=== PATIENT | male | born 1965 | race Caucasian/White ===

== ENCOUNTER 2020-06-02 10:52 | Day surgery (SDC) | payer OTHER, BC ==
[~2020-06-02] VITALS: Ht 185.4 cm; Wt 114.9 kg
[~2020-06-02 10:52] MED LIST: EZET10 PO; MULTI-VITAMIN1 EAC2 PO; OXYC10TA19 PO; TAMS.4ER PO
== END 2020-06-02 12:49 | disposition home or self-care (01) ==
LOC: ORSCSDS 10:52
PROVIDERS: Internal Medicine Gastroenterology
PROC: 0DBC8ZX Excision of Ileocecal Valve, Via Natural or Artificial Opening Endoscopic, Diagnostic (ICD-10-PCS; principal; 2020-06-02 12:00)
PROC: 0DBK8ZX Excision of Ascending Colon, Via Natural or Artificial Opening Endoscopic, Diagnostic (ICD-10-PCS; principal; 2020-06-02 12:00)
PROC: 0DBM8ZX Excision of Descending Colon, Via Natural or Artificial Opening Endoscopic, Diagnostic (ICD-10-PCS; principal; 2020-06-02 12:00)
PROC: 0DBL8ZX Excision of Transverse Colon, Via Natural or Artificial Opening Endoscopic, Diagnostic (ICD-10-PCS; principal; 2020-06-02 12:00)
PROC: 0DBP8ZX Excision of Rectum, Via Natural or Artificial Opening Endoscopic, Diagnostic (ICD-10-PCS; principal; 2020-06-02 12:00)
DX: Z12.11 Encounter for screening for malignant neoplasm of colon (principal); D12.8 Benign neoplasm of rectum; D12.2 Benign neoplasm of ascending colon; D12.0 Benign neoplasm of cecum; D12.4 Benign neoplasm of descending colon; K63.5 Polyp of colon; K57.30 Diverticulosis of large intestine without perforation or abscess without bleeding; K64.8 Other hemorrhoids
CPT/HCPCS: 88305; A9270; J2704; J7120

== ENCOUNTER 2024-11-24 16:13 | Inpatient (IN) | payer OTHER ==
[~2024-11-24] VITALS: Ht 185.4 cm; Wt 98.4 kg
[~2024-11-24 16:13] MED LIST changes: -Aspir 8181 MG PO; -CATAPRES0.1 MG PO; -CIPR750 PO; -GABAPENTIN600 MG PO; -MIRALAX17 GM PO; -ROSUVASTATIN CA10 MG PO; -VISBIOME 112.51 EACH PO; -ZANAFLEX413 PO
[2024-11-24 16:51] LABS: Source, Urine Suprapubic Cath
[2024-11-24 17:11] LABS: Bilirubin, Urine Neg (Neg); Color, Urine Yellow (P-Yellow); Glucose Qualitative, Urine Neg (Neg); Ketones, Urine Neg (Neg); Leukocyte Esterase, Urine 3+ (Neg); Protein, Urine 3+ (Neg); Specific Gravity, Urine 1.015 (1.003-1.022); Urobilinogen, Urine 1+ (Normal)
[2024-11-24 17:21] LABS: Red Blood Cells, Urine 25-50 /hpf (0-2); White Blood Cells, Urine TNTC /hpf (0-5)
[2024-11-24 17:27] LABS: BASOPHILS ABSOLUTE AUTO 0.09 K/mm3 (0.00-0.23); BASOPHILS PERCENT AUTO 1 % (0-2); EOSINOPHILS ABSOLUTE AUTO 0.19 K/mm3 (0.00-0.68); EOSINOPHILS PERCENT AUTO 1 % (0-6); Hematocrit 36.8 % (37.0-53.0); Hemoglobin 12.9 g/dL (13.5-17.5); IMMATURE GRAN ABSOLUTE AUTO 0.11 K/mm3 (0.00-0.10); IMMATURE GRAN PERCENT AUTO 1 % (0-1); LYMPHOCYTES ABSOLUTE AUTO 2.29 K/mm3 (0.84-5.20); LYMPHOCYTES PERCENT AUTO 12 % (21-46); MONOCYTES ABSOLUTE AUTO 1.66 K/mm3 (0.16-1.47); MONOCYTES PERCENT AUTO 9 % (4-13); Mean Corpuscular HGB Conc 35.1 g/dL (31.5-36.5); Mean Corpuscular Volume 86 fL (80-100); NEUTROPHILS ABSOLUTE AUTO 14.71 K/mm3 (1.96-9.15); NEUTROPHILS PERCENT AUTO 77 % (41-73); NRBC ABSOLUTE 0.00 K/mm3 (0.00-0.02); NRBC Auto 0.0 /100 WBC (0.0-0.2); Platelet Count 360 K/mm3 (150-400); RDW Coefficient Variation 12.1 % (11.7-14.2); RDW Standard Deviation 38.2 fL (35.1-46.3)
[2024-11-24 17:34] LABS: Influenza A, PCR NEGATIVE (NEGATIVE); Influenza B, PCR NEGATIVE (NEGATIVE); Resp Syncytial Virus, PCR NEGATIVE (NEGATIVE); SARS-Cov-2 (COVID-19) PCR, MMC NEGATIVE (NEGATIVE)
[2024-11-24 18:08] LABS: Alanine Aminotransfer (ALT/SGP 28.0 U/L (12-78); Albumin, Blood 3.2 g/dL (3.4-5.0); Albumin/Globulin Ratio 0.6 (0.8-1.8); Anion Gap 10.0 mmol/L (3-11); Aspartate Aminotrans (AST/SGOT 37.0 U/L (12-37); Bilirubin, Total 1.9 mg/dL (0.1-1.0); Blood Urea Nitrogen 35.0 mg/dL (8-24); CO2, Blood 24.0 mmol/L (21-32); Calcium, Blood 9.5 mg/dL (8.5-10.1); Chloride, Blood 99.0 mmol/L (98-108); Creatinine, Blood 1.09 mg/dL (0.60-1.20); Globulin, Blood 5.3 g/dL (2.2-4.0); Glucose, Blood 176.0 mg/dL (70-99); Potassium, Blood 4.2 mmol/L (3.5-5.5); Sodium, Blood 129.0 mmol/L (136-145); Total Protein, Blood 8.5 g/dL (6.4-8.2)
[2024-11-24] MEDS ORDERED: CefTRIAXone Sodium 2,000 MG in NS 100 ML IV ONE (21:45)
[2024-11-24] MEDS ORDERED: Ketorolac Tromethamine 15mg Vial IV ONE (22:00)
[2024-11-24] MEDS ORDERED: Ondansetron HCl 2 MG / ML 2ML Vial IV PRN (23:20)
[2024-11-24] MEDS ORDERED: ZANAFLEX413 PO (23:55)
[2024-11-24] MEDS ORDERED: ROSUVASTATIN CA10 MG PO (23:56)
[2024-11-24] MEDS ORDERED: GABAPENTIN600 MG PO (23:57)
[2024-11-25 00:44] LABS: Prothrombin Time Results 13.4 Sec (9.7-11.5)
[2024-11-25 00:49] LABS: Alanine Aminotransfer (ALT/SGP 22.0 U/L (12-78); Albumin, Blood 2.7 g/dL (3.4-5.0); Albumin/Globulin Ratio 0.6 (0.8-1.8); Anion Gap 11.0 mmol/L (3-11); Aspartate Aminotrans (AST/SGOT 20.0 U/L (12-37); Bilirubin, Total 1.7 mg/dL (0.1-1.0); Blood Urea Nitrogen 35.0 mg/dL (8-24); CO2, Blood 24.0 mmol/L (21-32); Calcium, Blood 8.7 mg/dL (8.5-10.1); Chloride, Blood 97.0 mmol/L (98-108); Creatinine, Blood 1.35 mg/dL (0.60-1.20); Globulin, Blood 4.5 g/dL (2.2-4.0); Glucose, Blood 256.0 mg/dL (70-99); Magnesium, Blood 1.8 mg/dL (1.6-2.4); Phosphorus, Blood 2.6 mg/dL (2.5-4.9); Potassium, Blood 3.1 mmol/L (3.5-5.5); Sodium, Blood 129.0 mmol/L (136-145); Total Protein, Blood 7.2 g/dL (6.4-8.2)
[2024-11-25 02:05] VITALS: BP 109/67
[2024-11-25] MEDS ORDERED: Aspir 8181 MG PO (02:08)
--- NOTE | 2024-11-25 02:15 | NUR ---
@0200 THIS FORM PRESS OPERATOR SPOKE OVER THE PHONE WITH DR. CAMARA, ON-CALL HOSPITALIST R/T LR BOLUSES ER ORDER ON EMAR. PER CONVERSTATION, OK TO D/C LR ORDER. ORDER DISCONTINUED. CHARGE NURSE VINICIO Sharp NOTIFIED.
--- NOTE | 2024-11-25 02:20 | NUR ---
@0120 THIS GLASSWARE DEFECT REPAIRER RECEIVED SBAR OVER THE PHONE FROM ED NURSE JOVANY. @0200 PT ARRIVED TO THE MEDICAL FLOOR IN A GURNEY AND WAS TRANSFERRED TO THE HOSPITAL BED USING SLIDING SHEET WITH 3 STAFF MEMBERS. (PT'S BASELINE IS WALKS INDEPENDENTLY). PT BROUGHT ALL HIS BELONINGS WITH HIM. CHARGE NURSE VINICIO Shapr COMPLETED THE ADMISSION ASSESSMENT. EDUCATED ON SMOKING POLICY, FALL PRECAUTIONS AND CALL LIGHT. BED AT THE LOWEST POSITION, CALL LIGHT W/I REACH. PT IS A/O X4, ABLE TO MAKE HIS NEEDS KNOWN AND COOPERATIVE WITH CARE.
--- NOTE | 2024-11-25 06:51 | NUR ---
PT REFUSED AM LABS. PT EDUCATION GIVEN. REFUSED PER PT.
[2024-11-25] MEDS ORDERED: Lactobacil 2-S.Thermo-Bifido 1 1 Cap PO SCH (09:00)
[2024-11-25] MEDS ORDERED: Enoxaparin 40 MG/0.4 ML SYR SC SCH (09:00)
[2024-11-25 09:10] VITALS: BP 160/110
[2024-11-25] MEDS ORDERED: NS 1,000 ML IV SCH (10:35)
[2024-11-25 11:12] VITALS: BP 133/76
--- NOTE | 2024-11-25 14:30 | NUR ---
CRITICAL RESULT PATIENT WITH POSITIVE BLOOD CULTURES X2 WITH GRAM NEGATIVE BACILI. DR. JOSEPH CALLED AND VOICEMAIL LEF AT 1425. RECIEVED CALL FROM PATHOLOGY AT 1417. WILL CONTINUE TO MONITOR.
[2024-11-25 15:18] VITALS: BP 118/69
[2024-11-25 15:43] LABS: Albumin, Blood 2.5 g/dL (3.4-5.0); Anion Gap 11 mmol/L (3-11); Blood Urea Nitrogen 34 mg/dL (8-24); CO2, Blood 23 mmol/L (21-32); Calcium, Blood 8.5 mg/dL (8.5-10.1); Chloride, Blood 101 mmol/L (98-108); Creatinine, Blood 1.49 mg/dL (0.60-1.20); Glucose, Blood 231 mg/dL (70-99); Magnesium, Blood 1.9 mg/dL (1.6-2.4); Phosphorus, Blood 4.1 mg/dL (2.5-4.9); Potassium, Blood 3.6 mmol/L (3.5-5.5); Sodium, Blood 131 mmol/L (136-145)
--- NOTE | 2024-11-25 18:30 | NUR ---
SHIFT SUMMARY PATIENT A/OX4, ABLE TO MAKE NEEDS KNOWN. PLEASANT AND COOPERATIVE WITH CARE. DR. JOSEPH CALLED THIS MRONING D/T PATIENT'S CHRONIC BACK PAIN. HOME ORDER FOR OXYCODONE ADMINISTERED PER MAY. PATIENT WITH ELEVATED BLOOD PRESSURE THIS MORNING 210/100, MD NOTIFIED AND PRN CLONIDINE ADMINISTERER PER MAY. PATIENT FEBRILE THIS AFTERNOON, FLUSHED, AND DIAPHORETIC, PRN TYLENOL ADMINISTERED FOR TEMP OF 101.1 AT THE HIGHEST TODAY. CRITICAL RESULTS OF 2 POSITIVE BLOOD CULTURES THIS AFTERNOON, GRAM - BACILI. LEFT MESSAGE WITH DR. JOSEPH. IV FLUIDS RUNNING PER MAY. NO OTHER CONCERNS AT THIS TIME, PATIENT WITH SISTER AT BEDSIDE AND UPDATED ON PATIENT SATUS. WILL CONTINUE TO MONITOR.
[2024-11-25 19:49] VITALS: BP 104/62
[2024-11-25] MEDS ORDERED: CefTRIAXone Sodium 1,000 MG in NS 100 ML IV SCH (21:00)
[2024-11-26 04:16] VITALS: BP 130/69
[2024-11-26 05:02] LABS: BASOPHILS ABSOLUTE AUTO 0.08 K/mm3 (0.00-0.23); BASOPHILS PERCENT AUTO 0 % (0-2); EOSINOPHILS ABSOLUTE AUTO 0.37 K/mm3 (0.00-0.68); EOSINOPHILS PERCENT AUTO 2 % (0-6); Hematocrit 32.8 % (37.0-53.0); Hemoglobin 11.2 g/dL (13.5-17.5); IMMATURE GRAN ABSOLUTE AUTO 0.10 K/mm3 (0.00-0.10); IMMATURE GRAN PERCENT AUTO 1 % (0-1); LYMPHOCYTES ABSOLUTE AUTO 1.98 K/mm3 (0.84-5.20); LYMPHOCYTES PERCENT AUTO 11 % (21-46); MONOCYTES ABSOLUTE AUTO 1.36 K/mm3 (0.16-1.47); MONOCYTES PERCENT AUTO 8 % (4-13); Mean Corpuscular HGB Conc 34.1 g/dL (31.5-36.5); Mean Corpuscular Volume 88 fL (80-100); NEUTROPHILS ABSOLUTE AUTO 13.93 K/mm3 (1.96-9.15); NEUTROPHILS PERCENT AUTO 78 % (41-73); NRBC ABSOLUTE 0.00 K/mm3 (0.00-0.02); NRBC Auto 0.0 /100 WBC (0.0-0.2); Platelet Count 315 K/mm3 (150-400); RDW Coefficient Variation 12.2 % (11.7-14.2); RDW Standard Deviation 39.5 fL (35.1-46.3)
--- NOTE | 2024-11-26 05:09 | NUR ---
SHIFT SUMMARY: PT SLEPT THROUGH OUT THE NIGHT. NO ACUTE CHANGES. PT SHOWERED AT THE START OF SHIFT. NO FEVERS NOTED THIS SHIFT. FEVERS NOTED ON PREVIOUS SHIFT. NS RUNNING AT BEDSIDE AT 100 MLS/HR. CHRONIC SUPER PUBIC CATH IN PLACE AND DRAINING. PT IS ON ROOM AIR.
[2024-11-26 05:26] LABS: C-REACTIVE PROTEIN, EXT RANGE 14.7 mg/dL (0.000-0.300)
[2024-11-26 05:31] LABS: Alanine Aminotransfer (ALT/SGP 18.0 U/L (12-78); Albumin, Blood 2.3 g/dL (3.4-5.0); Albumin/Globulin Ratio 0.6 (0.8-1.8); Anion Gap 10.0 mmol/L (3-11); Aspartate Aminotrans (AST/SGOT 23.0 U/L (12-37); Bilirubin, Total 0.7 mg/dL (0.1-1.0); Blood Urea Nitrogen 41.0 mg/dL (8-24); CO2, Blood 23.0 mmol/L (21-32); Calcium, Blood 8.3 mg/dL (8.5-10.1); Chloride, Blood 104.0 mmol/L (98-108); Creatinine, Blood 1.57 mg/dL (0.60-1.20); Globulin, Blood 4.1 g/dL (2.2-4.0); Glucose, Blood 281.0 mg/dL (70-99); Potassium, Blood 3.4 mmol/L (3.5-5.5); Sodium, Blood 134.0 mmol/L (136-145); Total Protein, Blood 6.4 g/dL (6.4-8.2)
[2024-11-26 08:10] VITALS: BP 137/75
[2024-11-26 15:20] VITALS: BP 145/77
[2024-11-26] MEDS ORDERED: Lidocaine 2% Viscous Soln 20 ML,Nystatin 100,000 Unit/ml Susp 20 ML,Mag Hydrox/Al Hydro... MT PRN (16:15)
--- NOTE | 2024-11-26 18:00 | NUR ---
SHIFT SUMMARY: A&OX4 THROUGHOUT SHIFT. COOPERATIVE WITH CARE. OUT OF BED TO AMBULATE MULTIPLE TIMES THROUGHOUT SHIFT WITH FWW. MEDICATED FOR PAIN PER EMAR. PT REPORTS GOOD EFFECT. NO ACUTE EVENTS THIS SHIFT. BREATHING EQUAL AND NONLABORED. LYING IN BED AT THIS TIME. CALL LT WITHIN REACH. BED LOCKED AND IN THE LOWEST POSITION.
[2024-11-26 19:54] VITALS: BP 155/75
[2024-11-27 04:03] VITALS: BP 136/83
[2024-11-27 04:36] LABS: BASOPHILS ABSOLUTE AUTO 0.07 K/mm3 (0.00-0.23); BASOPHILS PERCENT AUTO 1 % (0-2); EOSINOPHILS ABSOLUTE AUTO 0.51 K/mm3 (0.00-0.68); EOSINOPHILS PERCENT AUTO 3 % (0-6); Hematocrit 34.7 % (37.0-53.0); Hemoglobin 11.9 g/dL (13.5-17.5); IMMATURE GRAN ABSOLUTE AUTO 0.09 K/mm3 (0.00-0.10); IMMATURE GRAN PERCENT AUTO 1 % (0-1); LYMPHOCYTES ABSOLUTE AUTO 2.33 K/mm3 (0.84-5.20); LYMPHOCYTES PERCENT AUTO 15 % (21-46); MONOCYTES ABSOLUTE AUTO 1.45 K/mm3 (0.16-1.47); MONOCYTES PERCENT AUTO 10 % (4-13); Mean Corpuscular HGB Conc 34.3 g/dL (31.5-36.5); Mean Corpuscular Volume 87 fL (80-100); NEUTROPHILS ABSOLUTE AUTO 10.69 K/mm3 (1.96-9.15); NEUTROPHILS PERCENT AUTO 71 % (41-73); NRBC ABSOLUTE 0.00 K/mm3 (0.00-0.02); NRBC Auto 0.0 /100 WBC (0.0-0.2); Platelet Count 341 K/mm3 (150-400); RDW Coefficient Variation 11.9 % (11.7-14.2); RDW Standard Deviation 38.5 fL (35.1-46.3)
[2024-11-27 05:01] LABS: Alanine Aminotransfer (ALT/SGP 22.0 U/L (12-78); Albumin, Blood 2.3 g/dL (3.4-5.0); Albumin/Globulin Ratio 0.5 (0.8-1.8); Anion Gap 7.0 mmol/L (3-11); Aspartate Aminotrans (AST/SGOT 29.0 U/L (12-37); Bilirubin, Total 0.6 mg/dL (0.1-1.0); Blood Urea Nitrogen 27.0 mg/dL (8-24); CO2, Blood 25.0 mmol/L (21-32); Calcium, Blood 8.2 mg/dL (8.5-10.1); Chloride, Blood 107.0 mmol/L (98-108); Creatinine, Blood 1.13 mg/dL (0.60-1.20); Globulin, Blood 4.5 g/dL (2.2-4.0); Glucose, Blood 255.0 mg/dL (70-99); Magnesium, Blood 2.0 mg/dL (1.6-2.4); Potassium, Blood 3.8 mmol/L (3.5-5.5); Sodium, Blood 135.0 mmol/L (136-145); Total Protein, Blood 6.8 g/dL (6.4-8.2)
--- NOTE | 2024-11-27 05:34 | NUR ---
SHIFT SUMMARY A&OX4. ABLE TO MAKE ALL NEEDS KNOWN. CONTINUES TO HAVE CHRONIC PAIN. PT ABLE TO REPOSITION NEEDED. PT MEDICATED PER EMAR. PT HAS RECEIVED FLUIDS PER ORDERS AND IS TOLERATING WELL. RIGHT FOREARM IV INFILTRATED AND HAD TO BE REMOVED. LEFT FOREARM IV REMAINS PATENT AND CURRENTLY INFUSING NS ORDERED. PT CURRENTLY SLEEPING IN HIS BED AT LOWEST POSITION WITH RAILS X2 AND CALL LIGHT WTHIN REACH.
[2024-11-27 07:37] VITALS: BP 144/86
[2024-11-27] MEDS ORDERED: Polyethylene Glycol 3350 17 gm PO PRN (10:10)
[2024-11-27 15:45] VITALS: BP 183/94
--- NOTE | 2024-11-27 19:10 | NUR ---
ASSUMED CARE. A/O X 4, PT VERY UPSET THAT MEDICATIONS ARENT GIVEN TO HIM WHEN HE HAS THEM TIMED. I EXPLAINED HOW WE DID THINGS HERE BUT WAS STILL VERY UPSET. I WAS ABLE TO CHANGE TIMING ON ALL PT MEDICATIONS. PT WAS VERY APPRECIATIVE. PT HAS WBEEN INDEPENDANT IN ROOM, WORKED UNSUCSESSFULLY ON BOWEL CARE FOR PT, WILL CONT TO GIVE BOWEL CARE THIS EVENING. DIOP BAG REMOVED FROM CATHETER AND LEG BAG PLACED PER PT REQUEST. PT HOPING FOR DISCHARGE IN THE AM.
[2024-11-27 20:02] VITALS: BP 163/94
[2024-11-28 00:53] VITALS: BP 133/83
[2024-11-28 05:47] VITALS: BP 162/91
[2024-11-28 07:07] LABS: BASOPHILS ABSOLUTE AUTO 0.10 K/mm3 (0.00-0.23); BASOPHILS PERCENT AUTO 1 % (0-2); EOSINOPHILS ABSOLUTE AUTO 0.64 K/mm3 (0.00-0.68); EOSINOPHILS PERCENT AUTO 4 % (0-6); Hematocrit 39.6 % (37.0-53.0); Hemoglobin 13.8 g/dL (13.5-17.5); IMMATURE GRAN ABSOLUTE AUTO 0.17 K/mm3 (0.00-0.10); IMMATURE GRAN PERCENT AUTO 1 % (0-1); LYMPHOCYTES ABSOLUTE AUTO 2.20 K/mm3 (0.84-5.20); LYMPHOCYTES PERCENT AUTO 13 % (21-46); MONOCYTES ABSOLUTE AUTO 1.24 K/mm3 (0.16-1.47); MONOCYTES PERCENT AUTO 7 % (4-13); Mean Corpuscular HGB Conc 34.8 g/dL (31.5-36.5); Mean Corpuscular Volume 87 fL (80-100); NEUTROPHILS ABSOLUTE AUTO 12.59 K/mm3 (1.96-9.15); NEUTROPHILS PERCENT AUTO 74 % (41-73); NRBC ABSOLUTE 0.00 K/mm3 (0.00-0.02); NRBC Auto 0.0 /100 WBC (0.0-0.2); Platelet Count 403 K/mm3 (150-400); RDW Coefficient Variation 12.0 % (11.7-14.2); RDW Standard Deviation 37.8 fL (35.1-46.3)
--- NOTE | 2024-11-28 07:11 | NUR ---
SHIFT SUMMARY A&OX4. ABLE TO MAKE ALL NEEDS KNOWN. BS PRESENT BUT STILL NO BM WHICH PT IS CONCERNED ABOUT. PT DOES VOICE HE FEELS HIS STOMACH IS STARTING TO MOVE MORE. PT WAS ABLE TO REST THROUGHOUT THE NIGHT. PT CURRENTLY SITTING UP IN BED WATCHING TV WITH CALL LIGHT WITHIN REACH.
[2024-11-28 07:31] LABS: Alanine Aminotransfer (ALT/SGP 30.0 U/L (12-78); Albumin, Blood 2.8 g/dL (3.4-5.0); Albumin/Globulin Ratio 0.5 (0.8-1.8); Anion Gap 10.0 mmol/L (3-11); Aspartate Aminotrans (AST/SGOT 32.0 U/L (12-37); Bilirubin, Total 0.8 mg/dL (0.1-1.0); Blood Urea Nitrogen 18.0 mg/dL (8-24); CO2, Blood 25.0 mmol/L (21-32); Calcium, Blood 9.4 mg/dL (8.5-10.1); Chloride, Blood 102.0 mmol/L (98-108); Creatinine, Blood 0.99 mg/dL (0.60-1.20); Globulin, Blood 5.4 g/dL (2.2-4.0); Glucose, Blood 194.0 mg/dL (70-99); Magnesium, Blood 2.1 mg/dL (1.6-2.4); Potassium, Blood 3.8 mmol/L (3.5-5.5); Sodium, Blood 133.0 mmol/L (136-145); Total Protein, Blood 8.2 g/dL (6.4-8.2)
[2024-11-28 08:10] VITALS: BP 133/82
[2024-11-28] MEDS ORDERED: Insulin Regular 100 UNIT/ML 10ML Vial SC SCH (11:30)
[2024-11-28 13:17] LABS: BASOPHILS ABSOLUTE AUTO 0.10 K/mm3 (0.00-0.23); BASOPHILS PERCENT AUTO 1 % (0-2); EOSINOPHILS ABSOLUTE AUTO 0.57 K/mm3 (0.00-0.68); EOSINOPHILS PERCENT AUTO 4 % (0-6); Hematocrit 41.6 % (37.0-53.0); Hemoglobin 14.2 g/dL (13.5-17.5); IMMATURE GRAN ABSOLUTE AUTO 0.13 K/mm3 (0.00-0.10); IMMATURE GRAN PERCENT AUTO 1 % (0-1); LYMPHOCYTES ABSOLUTE AUTO 2.71 K/mm3 (0.84-5.20); LYMPHOCYTES PERCENT AUTO 17 % (21-46); MONOCYTES ABSOLUTE AUTO 1.04 K/mm3 (0.16-1.47); MONOCYTES PERCENT AUTO 7 % (4-13); Mean Corpuscular HGB Conc 34.1 g/dL (31.5-36.5); Mean Corpuscular Volume 87 fL (80-100); NEUTROPHILS ABSOLUTE AUTO 11.15 K/mm3 (1.96-9.15); NEUTROPHILS PERCENT AUTO 71 % (41-73); NRBC ABSOLUTE 0.00 K/mm3 (0.00-0.02); NRBC Auto 0.0 /100 WBC (0.0-0.2); Platelet Count 427 K/mm3 (150-400); RDW Coefficient Variation 11.9 % (11.7-14.2); RDW Standard Deviation 37.8 fL (35.1-46.3)
[2024-11-28] MEDS ORDERED: CIPR750 PO (14:46)
[2024-11-28] MEDS ORDERED: CATAPRES0.1 MG PO (14:47)
[2024-11-28] MEDS ORDERED: VISBIOME 112.51 EACH PO (14:48)
[2024-11-28] MEDS ORDERED: MIRALAX17 GM PO (14:50)
--- NOTE | 2024-11-28 15:42 | NUR ---
discharge orsders given. meds faxed to [facility] and i called [facility] would be open tomporrow if there were issues today. iv dced, pt taken down stairs and drove self home.
== END 2024-11-28 15:28 | disposition home or self-care (01) | DRG 872 ==
LOC: ER 16:13 → MEDS 23:16
PROVIDERS: Emergency Medicine; Family Medicine; Hospitalist; Student in an Organized Health Care Education/Training Program; ADMIT Student in an Organized Health Care Education/Training Program
PROC: 3E03329 Introduction of Other Anti-infective into Peripheral Vein, Percutaneous Approach (ICD-10-PCS; principal; 2024-11-24)
PROC: 0T2BX0Z Change Drainage Device in Bladder, External Approach (ICD-10-PCS; 2024-11-25)
DX: A41.59 Other Gram-negative sepsis (principal); N39.0 Urinary tract infection, site not specified; E87.20 Acidosis, unspecified; E87.1 Hypo-osmolality and hyponatremia; L03.317 Cellulitis of buttock; R65.20 Severe sepsis without septic shock; N31.9 Neuromuscular dysfunction of bladder, unspecified; J02.9 Acute pharyngitis, unspecified; G89.4 Chronic pain syndrome; E78.5 Hyperlipidemia, unspecified; I10 Essential (primary) hypertension; K80.20 Calculus of gallbladder without cholecystitis without obstruction; T63.311A Toxic effect of venom of black widow spider, accidental (unintentional), initial encounter; R53.83 Other fatigue; M79.10 Myalgia, unspecified site; J44.9 Chronic obstructive pulmonary disease, unspecified; Z79.891 Long term (current) use of opiate analgesic; Z88.2 Allergy status to sulfonamides; Z88.5 Allergy status to narcotic agent; Z88.1 Allergy status to other antibiotic agents
CPT/HCPCS: 36415; 71046; 71260; 74177; 80053; 80069; 81001; 82550; 83036; 83605; 83735; 84100; 85025; 85610; 85730; 86140; 87040; 87077; 87086; 87186; 87637; 93005; 93010; 96374-59; 99284-25; A9270; J0696; J1650; J1885; J7030; J7120; Q9967

== ENCOUNTER → 2024-11-24 | Outpatient (CLI) | payer OTHER ==
[~2024-11-24] MED LIST changes: +Aspir 8181 MG PO; +CATAPRES0.1 MG PO; +CIPR750 PO; +GABAPENTIN600 MG PO; +MIRALAX17 GM PO; +ROSUVASTATIN CA10 MG PO; +VISBIOME 112.51 EACH PO; +ZANAFLEX413 PO
[2024-11-24 14:53] LABS: BASOPHILS ABSOLUTE AUTO 0.08 K/mm3 (0.00-0.23); BASOPHILS PERCENT AUTO 0 % (0-2); EOSINOPHILS ABSOLUTE AUTO 0.23 K/mm3 (0.00-0.68); EOSINOPHILS PERCENT AUTO 1 % (0-6); Hematocrit 39.6 % (37.0-53.0); Hemoglobin 13.6 g/dL (13.5-17.5); IMMATURE GRAN ABSOLUTE AUTO 0.09 K/mm3 (0.00-0.10); IMMATURE GRAN PERCENT AUTO 1 % (0-1); LYMPHOCYTES ABSOLUTE AUTO 2.04 K/mm3 (0.84-5.20); LYMPHOCYTES PERCENT AUTO 11 % (21-46); MONOCYTES ABSOLUTE AUTO 1.67 K/mm3 (0.16-1.47); MONOCYTES PERCENT AUTO 9 % (4-13); Mean Corpuscular HGB Conc 34.3 g/dL (31.5-36.5); Mean Corpuscular Volume 87 fL (80-100); NEUTROPHILS ABSOLUTE AUTO 14.60 K/mm3 (1.96-9.15); NEUTROPHILS PERCENT AUTO 78 % (41-73); NRBC ABSOLUTE 0.00 K/mm3 (0.00-0.02); NRBC Auto 0.0 /100 WBC (0.0-0.2); Platelet Count 372 K/mm3 (150-400); RDW Coefficient Variation 12.1 % (11.7-14.2); RDW Standard Deviation 39.1 fL (35.1-46.3)
[2024-11-24 15:06] LABS: Alanine Aminotransfer (ALT/SGP 34.0 U/L (12-78); Albumin, Blood 3.3 g/dL (3.4-5.0); Albumin/Globulin Ratio 0.6 (0.8-1.8); Anion Gap 14.0 mmol/L (3-11); Aspartate Aminotrans (AST/SGOT 29.0 U/L (12-37); Bilirubin, Total 1.7 mg/dL (0.1-1.0); Blood Urea Nitrogen 34.0 mg/dL (8-24); CO2, Blood 27.0 mmol/L (21-32); Calcium, Blood 9.8 mg/dL (8.5-10.1); Chloride, Blood 94.0 mmol/L (98-108); Creatinine, Blood 1.42 mg/dL (0.60-1.20); Globulin, Blood 5.7 g/dL (2.2-4.0); Glucose, Blood 178.0 mg/dL (70-99); Potassium, Blood 4.4 mmol/L (3.5-5.5); Sodium, Blood 131.0 mmol/L (136-145); Total Protein, Blood 9.0 g/dL (6.4-8.2)
== END ==
LOC: LAB 14:48 → LAB SHORT 14:48
PROVIDERS: Physician Assistant
DX: R53.83 Other fatigue (principal)
CPT/HCPCS: 80053; 85025